=== PATIENT | male | born 1990 | race Caucasian/White ===

== ENCOUNTER 2021-11-09 09:10 | Emergency (ER) | payer OTHER ==
[~2021-11-09] VITALS: Ht 175.2 cm; Wt 63.5 kg
[2021-11-09] MEDS ORDERED: CYCLOBENZAPRINE10 MG PO (10:41)
== END 2021-11-09 10:54 | disposition home or self-care (01) ==
LOC: ED 09:10
DX: M54.50 Low back pain, unspecified (principal); Z88.6 Allergy status to analgesic agent; F17.200 Nicotine dependence, unspecified, uncomplicated